=== PATIENT | female | born 1975 | race Caucasian/White ===

== ENCOUNTER 2018-12-14 10:14 | Emergency (ER) | payer MEDICAID ==
[~2018-12-14] VITALS: Ht 10.2 cm; Wt 118.2 kg
[2018-12-14 10:25] VITALS: BP 126/89; PULSE 86; TEMP 98.5
[2018-12-14] MEDS ORDERED: AMOXICILLIN 8751 TAB PO (10:43)
[2018-12-14] MEDS ORDERED: NORCO 325 MG-51 TAB PO (10:44)
== END 2018-12-14 11:02 | disposition home or self-care (01) ==
LOC: COL.ER 10:14
DX: N64.4 Mastodynia (principal); F17.210 Nicotine dependence, cigarettes, uncomplicated; F12.90 Cannabis use, unspecified, uncomplicated

== ENCOUNTER → 2019-01-01 | Outpatient (REF) ==
[~2019-01-01] MED LIST: AMOXICILLIN 8751 TAB PO; NORCO 325 MG-51 TAB PO
[2019-01-01 16:56] LABS: THYROID STIMULATING HORMONE 3.65 uIU/mL (0.465-4.680)
== END ==
LOC: ZLAB.WCH 16:05
PROVIDERS: Physician Assistant
DX: Z01.89 Encounter for other specified special examinations (principal)